=== PATIENT | male | born 1955 | race Caucasian/White ===

== ENCOUNTER 2017-08-02 00:15 | Emergency (ER) | payer BC ==
[2017-08-02 01:24] LABS: ADD MAN DIFF? NO
[2017-08-02 01:28] LABS: BASOPHILS % 0.4 % (0.0-2.0); EOSINOPHILS # 0.2 10^3/ul (0.0-0.5); EOSINOPHILS % 2.5 % (0.0-7.0); HEMATOCRIT 42.8 % (42.0-52.0); LYMPHOCYTES # 2.2 10^3/ul (0.8-2.9); LYMPHOCYTES % 28.8 % (15.0-51.0); MEAN CORPUSCULAR HEMOGLOBIN 30.2 pg (29.0-33.0); MEAN CORPUSCULAR VOLUME 86.1 fl (82.0-101.0); MEAN PLATELET VOLUME 9.3 fl (7.4-10.4); MONOCYTE # 0.6 10^3/ul (0.3-0.9); MONOCYTES % 8.1 % (0.0-11.0); NEUTROPHIL # 4.6 10^3/ul (1.6-7.5); NEUTROPHILS % 59.9 % (39.0-77.0); PLATELET COUNT 283 10^3/UL (140-415); RED BLOOD COUNT 4.97 10^6/ul (4.70-6.10); RED CELL DISTRIBUTION WIDTH 13.1 % (11.5-14.5)
[2017-08-02 01:28] LABS: WHITE BLOOD COUNT 7.6 10^3/ul (4.8-10.8)
[2017-08-02] MEDS: SOD CHLORIDE 0.9% 500 ML IV (01:31)
[2017-08-02 01:44] LABS: ADD UMIC YES; UR ASCORBIC ACID NEGATIVE (NEGATIVE); UR BACTERIA MODERATE /HPF (NONE SEEN); UR BILIRUBIN (Dip) NEGATIVE (NEGATIVE); UR BLOOD (Dip) 2+ mg/dL (NEGATIVE); UR CLARITY TURBID (CLEAR); UR COLOR RED (YELLOW); UR GLUCOSE (Dip) 1+ mg/dL (NEGATIVE); UR KETONES (Dip) TRACE mg/dL (NEGATIVE); UR LEUKOCYTE ESTERASE (Dip) NEGATIVE Leu/ul (NEGATIVE); UR NITRITE (Dip) NEGATIVE (NEGATIVE); UR RBC > 182 /HPF (0-5); UR SPECIFIC GRAVITY (Dip) 1.021 (1.003-1.030); UR TOTAL PROTEIN (Dip) 2+ mg/dl (NEGATIVE); UR UROBILINOGEN (Dip) NEGATIVE (NEGATIVE); UR WBC > 182 /HPF (0-5)
[2017-08-02 01:47] LABS: ALANINE AMINOTRANSFERASE 46 IU/L (13-69); ALBUMIN 4.3 g/dl (3.3-4.9); ALBUMIN/GLOBULIN RATIO 1.48; ALKALINE PHOSPHATASE 81 IU/L (42-121); ANION GAP 18 (8-16); ASPARTATE AMINO TRANSFERASE 24 IU/L (15-46); BILIRUBIN,INDIRECT 0.3 mg/dl (0-1.1); BILIRUBIN,TOTAL 0.3 mg/dl (0.2-1.3); BLOOD UREA NITROGEN 16 mg/dl (7-20); CALCIUM 9.9 mg/dl (8.4-10.2); CARBON DIOXIDE 25 mmol/L (21-31); CHLORIDE 106 mmol/L (97-110); CREATININE 0.84 mg/dl (0.61-1.24); GLUCOSE 150 mg/dl (70-220); LIPASE 183 U/L (23-300); POTASSIUM 3.8 mmol/L (3.5-5.1); SODIUM 145 mmol/L (135-144); TOTAL PROTEIN 7.2 g/dl (6.1-8.1)
[2017-08-02] MEDS: CEFTRIAXONE 1 GM/50 ML (PMX) 50 ML IVPB (02:14)
== END 2017-08-02 03:20 | disposition home or self-care (01) ==
LOC: E/R 00:15
DX: N39.0 Urinary tract infection, site not specified (principal); I10 Essential (primary) hypertension; E11.9 Type 2 diabetes mellitus without complications; Z79.82 Long term (current) use of aspirin; Z79.84 Long term (current) use of oral hypoglycemic drugs; Z85.46 Personal history of malignant neoplasm of prostate
CPT/HCPCS: 36415; 80053; 81001; 83690; 85025; 87086; 96374; 99284-25

== ENCOUNTER 2017-12-10 09:59 | Day surgery (SDC) | payer BC ==
[2017-12-10] MEDS ORDERED: NACL 0.9% 3 ML SYG IV (14:00)
[2017-12-10] MEDS ORDERED: ACETAMINOPHEN 325 MG TAB PO (14:00)
[2017-12-10] MEDS ORDERED: HYDROCODONE/APAP (5/325) TAB PO (14:00)
[2017-12-10] MEDS ORDERED: ONDANSETRON 4 MG INJ IV (14:00)
[2017-12-10] MEDS ORDERED: hydrALAzine 20 MG INJ IV (15:30)
[2017-12-10] MEDS ORDERED: GLUCAGON 1 MG INJ IM (16:00)
[2017-12-10] MEDS ORDERED: DEXTROSE 50% 50 ML SYRINGE IV ×2 (16:00)
[2017-12-10] MEDS ORDERED: GLUCOSE GEL 15 GRAM TUBE PO ×2 (16:00)
[2017-12-10] MEDS ORDERED: GLUCOSE GEL 15 GRAM TUBE BUCCAL (16:00)
[2017-12-10] MEDS ORDERED: INSULIN ASPART [NOVOLOG] 3 ML PEN SC ×2 (18:00)
[2017-12-10] MEDS ORDERED: INSULIN GLARGINE [LANTus] (100 UNITS/ML) SYG SC (20:00)
[2017-12-11] MEDS ORDERED: BENAZEPRIL 40 MG TAB PO (09:00)
== END 2017-12-10 15:30 | disposition home or self-care (01) ==
LOC: SDS 09:59
DX: N40.1 Benign prostatic hyperplasia with lower urinary tract symptoms (principal); Z53.8 Procedure and treatment not carried out for other reasons; I10 Essential (primary) hypertension; E11.9 Type 2 diabetes mellitus without complications; E66.9 Obesity, unspecified; Z68.31 Body mass index [BMI] 31.0-31.9, adult
CPT/HCPCS: 82962

== ENCOUNTER 2017-12-31 09:01 | Inpatient (IN) | payer BC ==
[2017-12-31 09:34] LABS: ADD MAN DIFF? NO
[2017-12-31 09:42] LABS: WHITE BLOOD COUNT 12.5 10^3/ul (4.8-10.8)
[2017-12-31 09:42] LABS: BASOPHIL # 0.1 10^3/ul (0.0-0.1); BASOPHILS % 0.5 % (0.0-2.0); EOSINOPHILS # 0.1 10^3/ul (0.0-0.5); HEMATOCRIT 47.3 % (42.0-52.0); HEMOGLOBIN 16.2 g/dl (14.0-18.0); LYMPHOCYTES # 2.7 10^3/ul (0.8-2.9); LYMPHOCYTES % 21.5 % (15.0-51.0); MEAN CORPUSCULAR HEMOGLOBIN 29.5 pg (29.0-33.0); MEAN CORPUSCULAR HGB CONC 34.2 g/dl (32.0-37.0); MEAN CORPUSCULAR VOLUME 86.2 fl (82.0-101.0); MONOCYTE # 0.7 10^3/ul (0.3-0.9); MONOCYTES % 5.5 % (0.0-11.0); NEUTROPHIL # 8.9 10^3/ul (1.6-7.5); NEUTROPHILS % 71.3 % (39.0-77.0); PLATELET COUNT 315 10^3/UL (140-415); RED BLOOD COUNT 5.49 10^6/ul (4.70-6.10); RED CELL DISTRIBUTION WIDTH 12.7 % (11.5-14.5)
[2017-12-31 09:50] LABS: HOLD TRANSMISSIONS 1
[2017-12-31 10:09] LABS: ANION GAP 17 (8-16); BLOOD UREA NITROGEN 13 mg/dl (7-20); CALCIUM 9.7 mg/dl (8.4-10.2); CARBON DIOXIDE 24 mmol/L (21-31); CHLORIDE 103 mmol/L (97-110); GLUCOSE 161 mg/dl (70-220); POTASSIUM 4.2 mmol/L (3.5-5.1); SODIUM 140 mmol/L (135-144)
[2017-12-31 10:53] LABS: PARTIAL THROMBOPLASTIN TIME 27.4 Sec (25.0-35.0); PROTIME 13.3 Sec (11.9-14.9)
[2017-12-31] MEDS ORDERED: FENTAnyl 50 MCG/ML VIAL ×2 (11:04→11:57)
[2017-12-31] MEDS ORDERED: LIDOCAINE 100 MG SYRINGE (11:05)
[2017-12-31] MEDS ORDERED: SUCCINYLCHOLINE CHLORIDE 100 MG/5 ML SYG IV (11:05)
[2017-12-31] MEDS ORDERED: ROCURONIUM 50 MG INJ (11:05)
[2017-12-31] MEDS ORDERED: SUGAMMADEX SODIUM 200 MG/2 ML VIAL IV (11:05)
[2017-12-31] MEDS ORDERED: PROPOFOL 20 ML (11:05)
[2017-12-31] MEDS ORDERED: CEFAZOLIN 1 GM INJ (11:05)
[2017-12-31] MEDS ORDERED: INDIGOTINDISULFONATE 0.8% 5 ML INJ (11:43)
[2017-12-31] MEDS ORDERED: MEPERIDINE 25 MG INJ IV (12:00)
[2017-12-31] MEDS ORDERED: HYDROmorphONE 1 MG/5 ML IV SYRINGE IV (12:00)
[2017-12-31] MEDS ORDERED: DIPHENHYDRAMINE 50 MG INJ IV (12:00)
[2017-12-31] MEDS ORDERED: FENTAnyl 50 MCG/ML VIAL IV (12:00)
[2017-12-31] MEDS: ONDANSETRON 4 MG INJ IV (14:07)
[2017-12-31] MEDS: HYDROmorphONE 1 MG/5 ML IV SYRINGE IV ×2 (14:07→14:15)
[2017-12-31] MEDS: FENTAnyl 50 MCG/ML VIAL IV ×2 (14:23→14:52)
[2017-12-31] MEDS: METOCLOPRAMIDE 10 MG INJ IV (14:53)
[2017-12-31] MEDS: CIPROFLOXACIN 500 MG TAB PO (18:29)
[2017-12-31] MEDS: SOD CHLORIDE 0.45% 1,000 ML IV (18:30)
[2017-12-31] MEDS ORDERED: GLUCOSE GEL 15 GRAM TUBE BUCCAL (19:00)
[2017-12-31] MEDS ORDERED: DEXTROSE 50% 50 ML SYRINGE IV ×2 (19:00)
[2017-12-31] MEDS ORDERED: GLUCAGON 1 MG INJ IM (19:00)
[2017-12-31] MEDS ORDERED: GLUCOSE GEL 15 GRAM TUBE PO ×2 (19:00)
[2017-12-31] MEDS: INSULIN ASPART [NOVOLOG] 3 ML PEN SC (20:34)
[2018-01-01] MEDS: ACCU-CHEK XX (01:59)
[2018-01-01 05:31] LABS: ADD MAN DIFF? NO
[2018-01-01 05:35] LABS: BASOPHILS % 0.2 % (0.0-2.0); EOSINOPHILS # 0.1 10^3/ul (0.0-0.5); EOSINOPHILS % 1.1 % (0.0-7.0); HEMATOCRIT 39.7 % (42.0-52.0); HEMOGLOBIN 13.6 g/dl (14.0-18.0); LYMPHOCYTES % 16.3 % (15.0-51.0); MEAN CORPUSCULAR HEMOGLOBIN 29.8 pg (29.0-33.0); MEAN CORPUSCULAR HGB CONC 34.3 g/dl (32.0-37.0); MEAN CORPUSCULAR VOLUME 86.9 fl (82.0-101.0); MEAN PLATELET VOLUME 9.3 fl (7.4-10.4); MONOCYTE # 0.9 10^3/ul (0.3-0.9); MONOCYTES % 7.6 % (0.0-11.0); NEUTROPHILS % 74.5 % (39.0-77.0); PLATELET COUNT 274 10^3/UL (140-415); RED BLOOD COUNT 4.57 10^6/ul (4.70-6.10)
[2018-01-01 05:35] LABS: WHITE BLOOD COUNT 12.1 10^3/ul (4.8-10.8)
[2018-01-01 05:49] LABS: HEMOGLOBIN A1C 6.7 % (0-5.9)
[2018-01-01] MEDS: CIPROFLOXACIN 500 MG TAB PO ×2 (06:12→18:03)
[2018-01-01] MEDS: BENAZEPRIL 40 MG TAB PO (08:38)
[2018-01-01] MEDS: metFORMIN 500 MG TAB PO ×2 (08:38→18:03)
[2018-01-01] MEDS: INSULIN ASPART [NOVOLOG] 3 ML PEN SC ×4 (08:39→21:00)
[2018-01-01] MEDS ORDERED: morphine 2 MG INJ IV (13:30)
[2018-01-01] MEDS: HYDROCODONE/APAP (5/325) TAB PO (13:52)
[2018-01-01 14:32] LABS: ANION GAP 14 (8-16); BLOOD UREA NITROGEN 15 mg/dl (7-20); CALCIUM 9.3 mg/dl (8.4-10.2); CARBON DIOXIDE 25 mmol/L (21-31); CHLORIDE 104 mmol/L (97-110); CREATININE 0.74 mg/dl (0.61-1.24); GLUCOSE 173 mg/dl (70-220); POTASSIUM 4.4 mmol/L (3.5-5.1); SODIUM 139 mmol/L (135-144)
[2018-01-02] MEDS: ACCU-CHEK XX (02:00)
[2018-01-02] MEDS: SOD CHLORIDE 0.45% 1,000 ML IV (02:13)
[2018-01-02 05:22] LABS: ADD MAN DIFF? NO
[2018-01-02 05:31] LABS: WHITE BLOOD COUNT 10.6 10^3/ul (4.8-10.8)
[2018-01-02 05:31] LABS: BASOPHIL # 0.1 10^3/ul (0.0-0.1); BASOPHILS % 0.5 % (0.0-2.0); EOSINOPHILS # 0.5 10^3/ul (0.0-0.5); EOSINOPHILS % 4.9 % (0.0-7.0); HEMATOCRIT 39.8 % (42.0-52.0); HEMOGLOBIN 13.2 g/dl (14.0-18.0); LYMPHOCYTES # 2.5 10^3/ul (0.8-2.9); LYMPHOCYTES % 23.6 % (15.0-51.0); MEAN CORPUSCULAR HEMOGLOBIN 29.3 pg (29.0-33.0); MEAN CORPUSCULAR HGB CONC 33.2 g/dl (32.0-37.0); MEAN CORPUSCULAR VOLUME 88.2 fl (82.0-101.0); MEAN PLATELET VOLUME 9.3 fl (7.4-10.4); MONOCYTE # 0.9 10^3/ul (0.3-0.9); MONOCYTES % 8.3 % (0.0-11.0); NEUTROPHIL # 6.6 10^3/ul (1.6-7.5); NEUTROPHILS % 62.4 % (39.0-77.0); PLATELET COUNT 265 10^3/UL (140-415); RED BLOOD COUNT 4.51 10^6/ul (4.70-6.10); RED CELL DISTRIBUTION WIDTH 13.2 % (11.5-14.5)
[2018-01-02] MEDS: CIPROFLOXACIN 500 MG TAB PO (05:35)
[2018-01-02 05:48] LABS: PHOSPHORUS 3.4 mg/dl (2.5-4.9)
[2018-01-02 05:48] LABS: MAGNESIUM 1.8 mg/dl (1.7-2.5)
[2018-01-02] MEDS: BENAZEPRIL 40 MG TAB PO (09:18)
[2018-01-02] MEDS: INSULIN ASPART [NOVOLOG] 3 ML PEN SC ×2 (09:22→13:04)
[2018-01-02] MEDS: metFORMIN 500 MG TAB PO (09:23)
[2018-01-02] MEDS ORDERED: morphine LIQ (10 MG/5 ML) CUP PO (17:30)
== END 2018-01-02 17:15 | disposition home or self-care (01) | DRG 667 ==
LOC: SDS 15:00 → MS1 15:00 → SDS 09:01 → MS1 15:45
PROC: 0VT08ZZ Resection of Prostate, Via Natural or Artificial Opening Endoscopic (ICD-10-PCS; principal; 2017-12-31 10:30)
PROC: 0TBB8ZZ Excision of Bladder, Via Natural or Artificial Opening Endoscopic (ICD-10-PCS; 2017-12-31 10:30)
DX: D49.4 Neoplasm of unspecified behavior of bladder (principal); N40.0 Benign prostatic hyperplasia without lower urinary tract symptoms; Z85.46 Personal history of malignant neoplasm of prostate; E11.9 Type 2 diabetes mellitus without complications; I10 Essential (primary) hypertension; N32.0 Bladder-neck obstruction
CPT/HCPCS: 80048; 82962; 83036; 83735; 84100; 85025; 85610; 85730; 88305; 88342